=== PATIENT | female | born 1965 | race African-American/Black ===

== ENCOUNTER 2017-03-15 10:54 | Emergency (ER) | payer OTHER ==
[~2017-03-15] VITALS: Ht 154.9 cm; Wt 75.8 kg
--- NOTE | ~2017-03-15 | EKG ---
[address] [place] [address] ELECTROCARDIOGRAM REPORT Name: NASIMA ISRAELJEAN CARLOS Walters Room #: [facility] [id number] Admission: 03/15/17 Attend Phys: Discharge: 03/15/17 Date of : 65 Report #: [id number] THIS REPORT FOR: //name// [facility] ED Test Date: 2017-03-15 Test Time: 10:59:46 Pat Name: DANGELO ISRAEL Department: Room: Gender: F Physics Teacher: NICOLETTE : 1965 Requested By: Aby Smith Order Number: [id number] MD: Venkata Morin Measurements Intervals [place] Rate: 99 P: 42 HI: 160 QRS: 18 QRSD: 80 T: 99 QT: 343 QTc: 441 Interpretive Statements Sinus rhythm Left atrial enlargement Nonspecific T abnormalities, lateral leads Compared to ECG 08/22/2016 13:15:58 T-wave abnormality now present Electronically Signed On 03-16-2017 8:15:26 CDT by Venkata Morin [email or web address] <ELECTRONICALLY SIGNED> By: Venkata Morin MD, [facility] 03/16/17 0815 D: 04/9 105 Venkata Morin MD, FACC /EPI
[~2017-03-15 10:54] MED LIST: AMLODIPINE BESY10 MG PO; ASPIR 8181 MG PO; ATIVAN1 MG PO; CARVEDILOL12.5 MG PO; CATAPRES0.2 MG PO; CHLORDIAZEPOXID10 MG PO; CLONAZEPAM 1 MG1 M1 PO; CLONIDINE HCL0.3 M3 PO; CLONIDINE0.1 PO; CORTISONE57 GM TP; DIOVAN160 MG PO; HEARTBURN PREVE20 MG PO; IBUPROFEN 400400 M2 PO; KEFLEX500 MG PO; KEPPRA 500 MG500 M1 PO; LABETALOL 100100 MG PO; LISINOPRIL20 MG PO; LOPRESSOR25 PO; METOPROLOL SUCC25 M1 PO; NITROGLYCERIN0.4 MG SUBLING; NORVASC10 MG PO; OXYCODONE HCL 55 MG PO; PEPCID20 MG PO; PERCOCET 5-3251 EACH PO; PHENERGAN 25 MG25 M1 PO; PHENERGAN25 M1 RC; RESTORIL15 MG PO; RESTORIL30 MG PO; TOPROL XL25 MG PO; TOPROL XL50 MG PO; TRAMADOL 50 MG50 MG PO; VALSARTAN80 MG PO; VISTARIL 25 MG25 M1 PO; ZOFRAN ODT4 MG PO; ZOFRAN ODT4 MG SUBLING
[2017-03-15 12:06] LABS: BASOPHILS 0.4 % (0.0-2.0); EOSINOPHILS 1.1 % (0.0-3.0); HEMATOCRIT 45.2 % (37.0-47.0); HEMOGLOBIN 15.6 gm/dL (12.0-15.0); LYMPHOCYTES 14.4 % (24.0-44.0); MCH 30.8 pg (26.0-34.0); MCHC 34.5 g/dL (28.0-37.0); MCV 89.3 fL (80.0-100.0); MONOCYTES 11.2 % (1.0-8.0); PLATELET COUNT 150 thou/uL (150-400); POLYS 72.9 % (36.0-66.0); RBC 5.07 mil/uL (4.20-5.00)
[2017-03-15 12:08] LABS: MANUAL DIFF NO
[2017-03-15 12:16] LABS: ANION GAP 10 mmol/L (7-16); BUN 14 mg/dL (7-18); CALCIUM 9.3 mg/dL (8.5-10.1); CHLORIDE 104 mmol/L (98-107); CO2 26 mmol/L (21-32); CREATININE 0.9 mg/dL (0.6-1.0); GLUCOSE 83 mg/dL (74-106); POTASSIUM 3.7 mmol/L (3.5-5.1); SODIUM 140 mmol/L (136-145)
[2017-03-15 12:23] LABS: ALBUMIN 3.6 g/dL (3.4-5.0); ALKALINE PHOSPHATASE 107 U/L (46-116); SGOT 34 U/L (15-37); SGPT 46 U/L (30-65); TOTAL BILIRUBIN 0.5 mg/dL (<0.1-1.0); TOTAL PROTEIN 8.2 g/dL (6.4-8.2); TROPONIN-I < 0.04 ng/mL (<0.04-0.07)
[2017-03-15] MEDS ORDERED: PHENERGAN 25 MG25 M1 PO (14:10)
[2017-03-15] MEDS ORDERED: PROMS25 WY RECTAL (14:10)
== END 2017-03-15 15:30 | disposition home or self-care (01) ==
LOC: ER 10:54
PROVIDERS: Physician Assistant
DX: K31.84 Gastroparesis (principal); I10 Essential (primary) hypertension; Z90.49 Acquired absence of other specified parts of digestive tract; Z91.041 Radiographic dye allergy status; Z88.1 Allergy status to other antibiotic agents; Z88.2 Allergy status to sulfonamides; Z88.8 Allergy status to other drugs, medicaments and biological substances; F17.210 Nicotine dependence, cigarettes, uncomplicated; F15.90 Other stimulant use, unspecified, uncomplicated

== ENCOUNTER 2017-05-19 02:22 | Emergency (ER) | payer OTHER ==
[~2017-05-19] VITALS: Ht 152.4 cm; Wt 74.8 kg
[~2017-05-19 02:22] MED LIST changes: +PROMS25 WY RECTAL
[2017-05-19 03:29] LABS: HEMATOCRIT 42.9 % (37.0-47.0); HEMOGLOBIN 14.4 gm/dL (12.0-15.0); MCHC 33.5 g/dL (28.0-37.0); MCV 89.6 fL (80.0-100.0); PLATELET COUNT 166 thou/uL (150-400); RBC 4.79 mil/uL (4.20-5.00); RDW 13.8 % (10.5-14.5); WBC 6.3 thou/uL (4.0-11.0)
[2017-05-19 03:30] LABS: MANUAL DIFF YES
[2017-05-19 03:36] LABS: CALCIUM 8.5 mg/dL (8.5-10.1); CREATININE 1.4 mg/dL (0.6-1.0); POTASSIUM 3.6 mmol/L (3.5-5.1)
[2017-05-19 03:41] LABS: ALBUMIN 3.5 g/dL (3.4-5.0); TOTAL BILIRUBIN 0.5 mg/dL (<0.1-1.0); TOTAL PROTEIN 7.8 g/dL (6.4-8.2)
[2017-05-19] MEDS ORDERED: ULTRAM 50MG TAB50 MG PO (03:52)
[2017-05-19] MEDS ORDERED: DIPHENHIST50 MG PO (03:53)
[2017-05-19 04:29] LABS: ABSOLUTE NEUTROPHILS 2.5 thou/uL (1.4-8.2); ANISOCYTOSIS SLIGHT; TOTAL CELL COUNT 100
== END 2017-05-19 04:20 | disposition home or self-care (01) ==
LOC: ER 02:22
PROVIDERS: Emergency Medicine
DX: R11.2 Nausea with vomiting, unspecified (principal); M25.571 Pain in right ankle and joints of right foot; I10 Essential (primary) hypertension; I67.1 Cerebral aneurysm, nonruptured; F17.210 Nicotine dependence, cigarettes, uncomplicated; F12.10 Cannabis abuse, uncomplicated; Z90.49 Acquired absence of other specified parts of digestive tract; Z85.42 Personal history of malignant neoplasm of other parts of uterus; Z91.041 Radiographic dye allergy status; Z88.8 Allergy status to other drugs, medicaments and biological substances; Z88.0 Allergy status to penicillin; Z88.2 Allergy status to sulfonamides

== ENCOUNTER 2017-10-26 13:35 | Inpatient (IN) | payer OTHER ==
[~2017-10-26] VITALS: Ht 152.4 cm; Wt 78.0 kg
--- NOTE | ~2017-10-26 | EKG ---
[address] [address] ELECTROCARDIOGRAM REPORT Name: DANGELO STEVEN Room #: 439-P ADM IN M.R.#: [id number] Admission: 10/26/17 Attend Phys: Benjamín Cruz MD Discharge: Date of : 65 Report #: [id number] THIS REPORT FOR: //name// [facility] ED Test Date: 2017-10-26 Test Time: 13:42:21 Pat Name: DANGELO STEVEN Department: Room: 439 Gender: F Wool Sorter: CISCO : 1965 Requested By: Sue Eckert Order Number: [id number] MD: Jonathan Ibarra Measurements Intervals [place] Rate: 80 P: 30 CA: 165 QRS: 29 QRSD: 80 T: -6 QT: 397 QTc: 458 Interpretive Statements Sinus rhythm Probable left atrial enlargement Borderline T abnormalities, inferior leads Baseline wander in lead(s) II,III,aVF Compared to ECG 09/11/2017 14:29:00 T-wave abnormality now present Electronically Signed On 10-26-2017 22:28:14 FEEDER SWITCHBOARD OPERATOR by Jonathan Ibarra [email or web address] <ELECTRONICALLY SIGNED> By: Jonathan Ibarra MD 10/26/17 2228 1342 1342 Jonathan Ibarra MD /EPI
[~2017-10-26 13:35] MED LIST changes: +ASPIRIN81 M2 PO; +CATAPRES0.2 M1 PO; +COREG25 MG PO; +DIPHENHIST50 MG PO; +LIPITOR40 MG PO; +PROTONIX 20 MG20 M1 PO; +ULTRAM 50MG TAB50 MG PO
[2017-10-26 13:37] VITALS: BP 147/93
[2017-10-26 13:51] LABS: HEMOGLOBIN 14.7 gm/dL (12.0-15.0); MCH 30.3 pg (26.0-34.0); MCHC 33.4 g/dL (28.0-37.0); MCV 90.9 fL (80.0-100.0); RBC 4.84 mil/uL (4.20-5.00); RDW 13.9 % (10.5-14.5); WBC 5.9 thou/uL (4.0-11.0)
[2017-10-26 13:52] LABS: MANUAL DIFF YES
[2017-10-26 14:02] LABS: ANION GAP 6 mmol/L (7-16); BUN 26 mg/dL (7-18); CHLORIDE 109 mmol/L (98-107); CO2 25 mmol/L (21-32); CREATININE 1.6 mg/dL (0.6-1.0); GLUCOSE 105 mg/dL (74-106); POTASSIUM 4.2 mmol/L (3.5-5.1); SODIUM 140 mmol/L (136-145)
[2017-10-26 14:11] LABS: TROPONIN-I < 0.04 ng/mL (<0.06)
[2017-10-26 14:14] LABS: ABSOLUTE NEUTROPHILS 2.5 thou/uL (1.4-8.2); PLATELET COUNT 172 thou/uL (150-400); PLATELET ESTIMATE NORMAL; TOTAL CELL COUNT 100
[2017-10-26 16:17] VITALS: BP 145/102
[2017-10-26 17:18] VITALS: BP 159/102
[2017-10-26 19:57] VITALS: BP 146/113
[2017-10-27 04:34] VITALS: BP 144/89
[2017-10-27 07:35] VITALS: BP 173/104
[2017-10-27 11:03] VITALS: BP 173/104
== END 2017-10-27 12:03 | disposition home or self-care (01) | DRG 684 ==
LOC: ER 13:35 → EROBS 14:47 → 4S 16:17
PROVIDERS: Emergency Medicine
DX: N17.9 Acute kidney failure, unspecified (principal); E86.0 Dehydration; F41.9 Anxiety disorder, unspecified; I10 Essential (primary) hypertension; F12.90 Cannabis use, unspecified, uncomplicated; E78.5 Hyperlipidemia, unspecified; F17.210 Nicotine dependence, cigarettes, uncomplicated; Z88.0 Allergy status to penicillin; Z88.2 Allergy status to sulfonamides; Z82.49 Family history of ischemic heart disease and other diseases of the circulatory system; Z88.8 Allergy status to other drugs, medicaments and biological substances; Z91.041 Radiographic dye allergy status; Z79.82 Long term (current) use of aspirin; Z79.899 Other long term (current) drug therapy
CPT/HCPCS: 10100

== ENCOUNTER 2017-12-04 12:40 | Emergency (ER) | payer OTHER ==
[~2017-12-04] VITALS: Ht 157.5 cm; Wt 74.8 kg
--- NOTE | ~2017-12-04 | EKG ---
[address] [address] [address] [place] [address] ELECTROCARDIOGRAM REPORT Name: DANGELO STEVEN Room #: REG LUIS ALBERTO Mane#: [id number] Admission: 12/04/17 Attend Phys: Discharge: Date of : 65 Report #: [id number] THIS REPORT FOR: //name// [facility] ED Test Date: 2017-12-04 Test Time: 12:57:14 Pat Name: DANGELO STEVEN Department: Room: Gender: F Food Production Manager: [facility] : 1965 Requested By: Chema Castillo Order Number: [id number] MD: Jonathan Ibarra Measurements Intervals [place] Rate: 81 P: 26 NM: 147 QRS: 30 QRSD: 73 T: 103 QT: 383 QTc: 445 Interpretive Statements Sinus rhythm Left atrial enlargement Probable left ventricular hypertrophy Abnormal T, consider ischemia, lateral leads Compared to ECG 10/26/2017 13:42:21 Possible ischemia now present T-wave abnormality still present Electronically Signed On 12-04-2017 15:45:25 EXECUTIVE ASST by Jonathan Ibarra [email or web address] <ELECTRONICALLY SIGNED> By: Jonathan Ibarra MD 12/04/17 1545 1257 1257 Jonathan Ibarra MD /JERONIMO
[~2017-12-04 12:40] MED LIST changes: -PROTONIX 20 MG20 M1 PO; +PROTONIX40 M1 PO
[2017-12-04 13:26] LABS: HEMATOCRIT 42.3 % (37.0-47.0); HEMOGLOBIN 14.4 gm/dL (12.0-15.0); MCH 30.5 pg (26.0-34.0); MCHC 34.1 g/dL (28.0-37.0); MCV 89.5 fL (80.0-100.0); RBC 4.73 mil/uL (4.20-5.00); WBC 7.5 thou/uL (4.0-11.0)
[2017-12-04 13:41] LABS: ANION GAP 7 mmol/L (7-16); BUN 25 mg/dL (7-18); CHLORIDE 106 mmol/L (98-107); CO2 29 mmol/L (21-32); CREATININE 1.2 mg/dL (0.6-1.0); GLUCOSE 101 mg/dL (74-106); POTASSIUM 4.6 mmol/L (3.5-5.1); SODIUM 142 mmol/L (136-145)
[2017-12-04 13:49] LABS: TROPONIN-I < 0.04 ng/mL (<0.06)
[2017-12-04] MEDS ORDERED: PROAIR HFA8.5 GM INH (16:24)
[2017-12-04] MEDS ORDERED: TESSALON PERLE100 MG PO (16:24)
[2017-12-04 18:00] VITALS: BP 163/110
[2018-05-29] MEDS ORDERED: COREG6.25 MG PO (02:03)
[2018-05-29] MEDS ORDERED: HYDRALAZINE 2525 MG PO (02:04)
[2018-05-29] MEDS ORDERED: HYZAAR 100-251 EACH PO (02:04)
[2018-05-31] MEDS ORDERED: HYDRALAZINE 5050 MG PO (09:41)
[2018-05-31] MEDS ORDERED: NYAMYC15 GM TOP (09:48)
[2018-06-01] MEDS ORDERED: LOPRESSOR50 PO (08:41)
[2018-06-01] MEDS ORDERED: HYDROCODONE-AP1 EAC6 PO (08:42)
== END 2017-12-04 18:00 | disposition home or self-care (01) ==
LOC: ER 12:40
PROVIDERS: Emergency Medicine
DX: R07.9 Chest pain, unspecified (principal); F41.9 Anxiety disorder, unspecified; I10 Essential (primary) hypertension; I67.1 Cerebral aneurysm, nonruptured; F17.210 Nicotine dependence, cigarettes, uncomplicated; Z91.041 Radiographic dye allergy status; Z88.6 Allergy status to analgesic agent; Z88.0 Allergy status to penicillin; Z88.2 Allergy status to sulfonamides; Z88.8 Allergy status to other drugs, medicaments and biological substances

== ENCOUNTER 2018-10-17 11:02 | Inpatient (IN) | payer OTHER ==
[~2018-10-17] VITALS: Ht 152.4 cm; Wt 83.9 kg
--- NOTE | ~2018-10-17 | EKG ---
[place] [address] [address] [facility] [place] [address] ELECTROCARDIOGRAM REPORT Name: DANGELO STEVEN Room #: 170-5 ADM IN M.R.#: [id number] Admission: 10/17/18 Attend Phys: Emir Richter Discharge: Date of : 65 Report #: [id number] THIS REPORT FOR: //name// [facility] ED Test Date: 2018-10-17 Test Time: 11:26:10 Pat Name: DANGELO STEEVN Department: Room: 170 Gender: F Healthcare Associate: DAYNA : 1965 Requested By: Gabi Liu Order Number: [id number] MD: Jonathan Ibarra Measurements Intervals [place] Rate: 62 P: 22 MI: 162 QRS: 37 QRSD: 83 T: 130 QT: 435 QTc: 442 Interpretive Statements Sinus rhythm Probable left atrial enlargement Probable LVH with secondary repol abnrm Possible ischemia Compared to ECG 05/28/2018 23:25:13 Electronically Signed On 10-17-2018 16:22:39 PLASTIC CABLEMAKING MACHINE OPERATOR by Jonathan Ibarra [email or web address] <ELECTRONICALLY SIGNED> By: Jonathan Ibarra MD 10/17/181621 25 25 Jonathan Ibarra MD /JERONIMO
--- NOTE | ~2018-10-17 | HC ---
[facility] [place] [address] CONSULTATION Name: DANGELO STEVEN Room #: 358-P ADM IN M.R.#: [id number] Admission: 10/17/18 Attend Phys: Emir Richter Discharge: Date of : 65 Report #: [id number] THIS REPORT FOR: //name// CC: FAM unknown Emir Richter DATE OF SERVICE: 10/19/2018 HISTORY OF PRESENT ILLNESS: This is a 53-year-old female patient who is very difficult to evaluate. The patient indicates she is deaf. This happened after she had an aneurysm coiling, that was in early . She indicates she has weakness on the left side. Earlier she has complained of numbness. She had numbness on the left side of the face, left upper extremity, left lower extremity. From all indication, it looks like it started several days ago. When I asked her whether she had any deficit after the coiling, which was done on the right side. she indicated no, but again that history is not very clear. She indicated she is allergic to DYE. When I take the further history, she indicates she has a chest pain on the left side and that is her biggest complaint. Chest pain radiates down to the left upper extremity and the left side of the face. I reviewed records and it looks like she has provided multiple different histories. REVIEW OF SYSTEMS: Indicate that she is allergic to multiple medications, which include TRAMADOL, SULFA, PENICILLIN, ZOFRAN, METOCLOPRAMIDE, DYE FOR THE CONTRAST. She has a history of bronchitis. She is deaf and history taking is very difficult. She has a history of brain aneurysm clipping, from the CT report it looks like the clipping was on the left side. I carried out 14-point review of system and this was the relevant 14-point review of system. PAST MEDICAL HISTORY: Positive for aneurysm clipping. She said that made her deaf. FAMILY HISTORY: Negative for early age stroke. SOCIAL HISTORY: She smokes. PHYSICAL EXAMINATION: Examination is difficult because she is deaf, but she is alert. She is responsive, she can follow simple commands. Cranial nerve examination, if anything, there may be some weakness on the right side of the face. She complained of weakness in the left upper and left lower extremity. She said she can appreciate the pinprick on the face, upper extremities and the lower extremities, but it looks different than right side. I cannot tell much about the reflexes. I could not look at the patient's fundus. She is moderately built individual. She does not have any dysmorphic features of eyes, ears and face. Her blood pressure has been running high and the last one was [facility] [address] [place] [address] CONSULTATION Name: DANGELO STEVEN Room #: 358-P [facility] IN M.R.#: [id number] Admission: 10/17/18 Attend Phys: Emir Richter Discharge: Date of : 65 Report #: [id number] better at 141/100, respiration is 20, pulse is 70, temperature is 97.5. LABORATORY DATA: White count is 6.0. She was scheduled for an MRI today, but I do not know why it was not done. I cannot find out from MRI and the patient does not know if her clips are incompatible with magnet. We need to find that out. RECOMMENDATIONS: 1. It is not clear what the etiology of the patient's symptom is. She needs a workup of her brain as well as spine. That workup is difficult. Typically those workups are done by neurosurgeons and no neurosurgeon comes here. I do not know why MRI was not done, but I suspect that was because her clips may not be compatible with MRI or at least they could not confirm that. I will trying to find out. If MRI cannot be done, it is going to be very difficult. It will be difficult to evaluate the spine. Brain, we can still evaluate with the CT angiogram. The problem is that she has CONTRAST allergies and that can always cause problem even if we pretreat her. I am not sure how long the symptoms are going on. It is going on for several days and it does involve the face. She is hypertensive and that maybe contributing to her symptom also. Her BUN and creatinine is high and she needs some hydration before we can give her the contrast if the symptoms are chronic. 2. I had a long talk with the patient. I discussed with her our options. She does have a neurosurgeon, Dr. Veras, but I told her very clearly the limitation of our hospital, that no neurosurgeon comes here and these things are handled by neurosurgeon. I discussed with her the only thing I can do is try to find out why MRI was not done and she can have contrast CT angio of the head and neck to evaluate her further. That does carry some risk. Discussion was difficult because the patient is deaf and it is very difficult for her to comprehend things. More than 50 minutes of time was spent taking care of this patient today and majority of that time was spent counseling the patient and coordinating her care. By: 1804 2349 Maik Billingsley MD /nt
[~2018-10-17 11:02] MED LIST changes: +COREG6.25 MG PO; +HYDRALAZINE 2525 MG PO; +HYDRALAZINE 5050 MG PO; +HYDROCODONE-AP1 EAC6 PO; +HYZAAR 100-251 EACH PO; +LOPRESSOR50 PO; +NYAMYC15 GM TOP; +PROAIR HFA8.5 GM INH; +TESSALON PERLE100 MG PO
[2018-10-17 11:03] VITALS: BP 163/120
[2018-10-17 11:40] LABS: ABSOLUTE NEUTROPHILS 2.6 thou/uL (1.4-8.2); BASOPHILS 0.9 % (0.0-2.0); EOSINOPHILS 15.5 % (0.0-3.0); HEMATOCRIT 46.1 % (37.0-47.0); HEMOGLOBIN 15.8 gm/dL (12.0-15.0); MCH 30.2 pg (26.0-34.0); MCHC 34.3 g/dL (28.0-37.0); MONOCYTES 11.5 % (1.0-8.0); PLATELET COUNT 117 thou/uL (150-400); POLYS 44.1 % (36.0-66.0); RBC 5.24 mil/uL (4.20-5.00); RDW 14.2 % (10.5-14.5)
[2018-10-17 11:49] LABS: ANION GAP 9 mmol/L (7-16); BUN 25 mg/dL (7-18); CALCIUM 9.5 mg/dL (8.5-10.1); CHLORIDE 108 mmol/L (98-107); CO2 26 mmol/L (21-32); CREATININE 1.3 mg/dL (0.6-1.0); GLUCOSE 95 mg/dL (74-106); POTASSIUM 3.7 mmol/L (3.5-5.1); SODIUM 143 mmol/L (136-145)
[2018-10-17 11:53] LABS: APTT 28.4 Seconds (24.5-32.8); PROTIME 10.5 Seconds (9.3-11.4)
[2018-10-17] MEDS ORDERED: RESTORIL15 MG PO (11:55)
[2018-10-17] MEDS ORDERED: LASIX 40 MG TAB40 M2 PO (11:55)
[2018-10-17] MEDS ORDERED: POTASSIUM20 PO (11:56)
[2018-10-17] MEDS ORDERED: ATIVAN1 MG PO (11:56)
[2018-10-17] MEDS ORDERED: ATORVASTATIN CA40 MG PO (11:57)
[2018-10-17 11:59] LABS: TROPONIN-I <0.06 ng/mL (<0.06)
[2018-10-17 12:55] LABS: URINE BILIRUBIN NEGATIVE (Negative); URINE BLOOD NEGATIVE (Negative); URINE CLARITY CLEAR; URINE COLOR YELLOW; URINE GLUCOSE-RANDOM* NEGATIVE (Negative); URINE KETONES NEGATIVE (Negative); URINE LEUKOCYTES NEGATIVE (Negative); URINE NITRITE NEGATIVE (Negative); URINE PROTEIN (DIPSTICK) 1+ (Negative); URINE UROBILINOGEN 0.2 E.U./dl (0.2-1.0)
[2018-10-17 13:17] LABS: CASTS None Seen /LPF (None Seen); CRYSTALS None Seen /LPF (None Seen); SQUAMOUS 0-3 Few /LPF (0-3); URINE WBC 0-5 Rare /HPF (0-5)
[2018-10-17 13:18] LABS: BACTERIA 1-9 Few /HPF (None Seen); URINE RBC None Seen /HPF (0-2)
[2018-10-17 13:20] LABS: AMP/METHAMP Negative (Negative); BARBITURATES Negative (Negative); BENZODIAZEPINES POSITIVE (Negative); COCAINE POSITIVE (Negative); METHADONE Negative (Negative); OPIATES Negative (Negative); PCP Negative (Negative)
[2018-10-17 14:57] VITALS: BP 184/98
[2018-10-17 16:49] VITALS: BP 142/94
[2018-10-17 17:47] VITALS: BP 136/89
[2018-10-17 19:30] VITALS: BP 155/96
[2018-10-17 23:20] VITALS: BP 139/86
[2018-10-18 03:50] VITALS: BP 130/84
[2018-10-18 06:43] LABS: ALBUMIN 3.5 g/dL (3.4-5.0); ANION GAP 9 mmol/L (7-16); BUN 32 mg/dL (7-18); CALCIUM 9.1 mg/dL (8.5-10.1); CHLORIDE 104 mmol/L (98-107); CO2 26 mmol/L (21-32); CREATININE 1.7 mg/dL (0.6-1.0); GLUCOSE 87 mg/dL (74-106); PHOSPHORUS 5.1 mg/dL (2.5-4.9); POTASSIUM 4.1 mmol/L (3.5-5.1); SODIUM 139 mmol/L (136-145); TROPONIN-I <0.06 ng/mL (<0.06)
[2018-10-18 07:15] VITALS: BP 156/99
[2018-10-18 08:01] LABS: CHOLESTEROL 127 mg/dL (<200); HDL CHOLESTEROL 54 mg/dL (>40); LDL CHOLESTEROL 58 mg/dL (<100); TC:HDL 2.4 Ratio (Not establshd); TRIGLYCERIDE 75 mg/dL (<150); VLDL 15 mg/dL (<40)
[2018-10-18 11:25] VITALS: BP 149/97
[2018-10-18 16:06] VITALS: BP 132/81
[2018-10-18 19:33] VITALS: BP 149/96
[2018-10-19 04:35] VITALS: BP 192/110
[2018-10-19 06:06] VITALS: BP 149/92
[2018-10-19 06:36] LABS: ALBUMIN 3.2 g/dL (3.4-5.0); CALCIUM 9.2 mg/dL (8.5-10.1); CREATININE 1.3 mg/dL (0.6-1.0); PHOSPHORUS 3.8 mg/dL (2.5-4.9); POTASSIUM 3.7 mmol/L (3.5-5.1)
[2018-10-19 08:21] VITALS: BP 154/106
[2018-10-19 12:26] VITALS: BP 130/82
[2018-10-19 16:09] VITALS: BP 141/100
[2018-10-19 19:42] VITALS: BP 138/93
[2018-10-20] VITALS (7 sets, daily range): BP systolic 155–183; BP diastolic 101–130
[2018-10-20 05:30] LABS: HEMATOCRIT 43.9 % (37.0-47.0); HEMOGLOBIN 14.8 gm/dL (12.0-15.0); MCHC 33.7 g/dL (28.0-37.0); MCV 89.2 fL (80.0-100.0); RBC 4.92 mil/uL (4.20-5.00); RDW 13.9 % (10.5-14.5); WBC 4.6 thou/uL (4.0-11.0)
[2018-10-20] MEDS ORDERED: PROAIR HFA8.5 GM INH (09:29)
[2018-10-20] MEDS ORDERED: PROMS25 WY RECTAL (09:29)
[2018-10-20] MEDS ORDERED: ATORVASTATIN CA40 MG PO (09:30)
[2018-10-20] MEDS ORDERED: CLONIDINE HCL0.3 M3 PO (09:30)
[2018-10-20] MEDS ORDERED: COZAAR 50 MG TA50 M1 PO (09:30)
[2018-10-20] MEDS ORDERED: ASPIRIN81 M2 PO (09:30)
[2018-10-20] MEDS ORDERED: RESTORIL15 MG PO (09:31)
[2018-10-20] MEDS ORDERED: PROTONIX40 M1 PO (09:31)
[2018-10-20] MEDS ORDERED: ATIVAN1 MG PO (09:31)
[2018-10-20] MEDS ORDERED: POTASSIUM20 PO (09:31)
[2018-10-20] MEDS ORDERED: LASIX 40 MG TAB40 M2 PO (09:31)
[2018-10-20] MEDS ORDERED: AZITHROMYCIN 2250 MG PO (09:46)
[2018-10-20] MEDS ORDERED: HYDROCODONE-AP1 EAC6 PO (09:46)
== END 2018-10-20 13:24 | disposition home or self-care (01) | DRG 69 ==
LOC: ER 11:02 → EROBS 13:53 → 3W 17:31
PROVIDERS: Emergency Medicine; Hospitalist; Internal Medicine
DX: G45.9 Transient cerebral ischemic attack, unspecified (principal); I16.0 Hypertensive urgency; F41.9 Anxiety disorder, unspecified; I10 Essential (primary) hypertension; J06.9 Acute upper respiratory infection, unspecified; F19.10 Other psychoactive substance abuse, uncomplicated; J40 Bronchitis, not specified as acute or chronic; E78.5 Hyperlipidemia, unspecified; G89.29 Other chronic pain; F14.90 Cocaine use, unspecified, uncomplicated; M54.9 Dorsalgia, unspecified; F12.90 Cannabis use, unspecified, uncomplicated; Z71.6 Tobacco abuse counseling; Z88.0 Allergy status to penicillin; Z88.2 Allergy status to sulfonamides; Z88.8 Allergy status to other drugs, medicaments and biological substances; Z79.82 Long term (current) use of aspirin; Z79.899 Other long term (current) drug therapy; Z82.49 Family history of ischemic heart disease and other diseases of the circulatory system; Z91.041 Radiographic dye allergy status; Z23 Encounter for immunization
CPT/HCPCS: 10879

== ENCOUNTER 2019-01-25 08:12 | Inpatient (IN) | payer OTHER ==
[~2019-01-25] VITALS: Ht 152.4 cm; Wt 83.9 kg
[~2019-01-25 08:12] MED LIST changes: +ATORVASTATIN CA40 MG PO; +AZITHROMYCIN 2250 MG PO; +COZAAR 50 MG TA50 M1 PO; +LASIX 40 MG TAB40 M2 PO; +POTASSIUM20 PO
[2019-01-25 08:17] VITALS: BP 144/103
[2019-01-25] MEDS ORDERED: PERCOCET PO (09:14)
[2019-01-25] MEDS ORDERED: CARVEDILOL12.5 MG PO (09:14)
--- NOTE | 2019-01-25 09:14 | EKG ---
[facility] [address] ELECTROCARDIOGRAM REPORT Name: DANGELO STEVEN Room #: REG LUIS ALBERTO Mane#: [id number] ������������������ Admission: 01/25/19 ������������������ Attend Phys: Discharge: ������������������ Date of : 65 Report #: [id number] ����������������������������������������������������������������� [id number] THIS REPORT FOR: //name// [facility] ED Test Date: 2019-01-25 Test Time: 08:28:38 Pat Name: DANGELO STEVEN Department: Room: Gender: F Launch Leader: Joey MOCTEZUMA RN : 1965 Requested By: Vickey Stockton Order Number: [id number] MD: Venkata Morin Measurements Intervals [place] Rate: 88 P: 49 ID: 158 QRS: 14 QRSD: 76 T: 130 QT: 387 QTc: 469 Interpretive Statements Sinus rhythm Probable left atrial enlargement LVH with secondary repolarization abnormality Minimal ST elevation, inferior leads Compared to ECG 10/17/2018 11:26:10 No significant change was found Electronically Signed On 01-25-2019 9:14:12 COMPENSATION SUPERVISOR by Venkata Morin [email or web address] ��������������������������������������������� <ELECTRONICALLY SIGNED> ���������������������������������������� By: Venkata Morin MD, [facility] ��������������������������������������������� 01/25/19913 7 7 Venkata Morin MD, [facility] /EPI
[2019-01-25 10:02] LABS: HEMATOCRIT 43.7 % (37.0-47.0); HEMOGLOBIN 14.8 gm/dL (12.0-15.0); MCH 30.3 pg (26.0-34.0); MCV 89.3 fL (80.0-100.0); RBC 4.89 mil/uL (4.20-5.00); RDW 14.9 % (10.5-14.5); WBC 5.9 thou/uL (4.0-11.0)
[2019-01-25 10:10] LABS: ANION GAP 11 mmol/L (7-16); BUN 33 mg/dL (7-18); CHLORIDE 105 mmol/L (98-107); CO2 25 mmol/L (21-32); CREATININE 1.9 mg/dL (0.6-1.0); GLUCOSE 100 mg/dL (74-106); POTASSIUM 3.5 mmol/L (3.5-5.1); SODIUM 141 mmol/L (136-145)
[2019-01-25 10:19] LABS: TROPONIN-I <0.06 ng/mL (<0.06)
[2019-01-25 10:43] LABS: ABSOLUTE NEUTROPHILS 3.8 thou/uL (1.4-8.2)
[2019-01-25 10:45] LABS: PLATELET COUNT 143 thou/uL (150-400)
[2019-01-25 14:58] VITALS: BP 167/111
[2019-01-25 15:50] VITALS: BP 156/110
[2019-01-25 16:34] VITALS: BP 172/102
[2019-01-25 17:22] VITALS: BP 172/102
[2019-01-25 19:28] LABS: AMP/METHAMP Negative (Negative); BARBITURATES Negative (Negative); BENZODIAZEPINES Negative (Negative); COCAINE POSITIVE (Negative); METHADONE Negative (Negative); OPIATES Negative (Negative); PCP Negative (Negative)
--- NOTE | 2019-01-25 19:36 | NUR ---
PATIENT ADMITTED TO ROOM ORIENTED TO CALL LIGHT, BED ALARMS, BATHROOM AND UNIT ROUTINE. SHE STATES TO NURSE SHE NEEDS A NARCOTIC TO CONTROL HER PAIN SHE HAS BEEN HAVING PAIN ALL DAY. STATES SHE IS HAVING LEFT CHEST PAIN. NOTIFIED AND ORDER FOR LIDOCAIN NOTED. PATIENT REFUSED LIDOCAIN STATING IT DOES NOT HELP HER IN ANY WAY. STATES SHE WANTS TORDOL AND FLEXERIL. NOTIFIED BUT SHE COULD NOT HAVE TORDOL BECAUSE HER CREATININE WAS HIGH. EXPLAINED THIS PATIENT AND STATED SHE IS GOING TO GO AHEAD AND LEAVE IF SHE WILL NOT BE GIVEN THE MEDICATOINS THAT SHE WANTS. SHE THEN DRESSED HERSELF AND SIGNED THE AMA FORM. SHE WAS OFFERED A W/C TO TAKE HER TO LOBBY BUT SHE REFUSED. AND WALKED TO ELEVATOR HERSELF. NOTIFIED.
== END 2019-01-25 19:49 | disposition home or self-care (01) | DRG 305 ==
LOC: ER 08:12 → EROBS 10:31 → 3W 15:47
PROVIDERS: Emergency Medicine; ADMIT Internal Medicine
DX: I16.0 Hypertensive urgency (principal); I24.9 Acute ischemic heart disease, unspecified; I10 Essential (primary) hypertension; F17.210 Nicotine dependence, cigarettes, uncomplicated; H91.90 Unspecified hearing loss, unspecified ear; F41.1 Generalized anxiety disorder; Z90.49 Acquired absence of other specified parts of digestive tract; Z88.0 Allergy status to penicillin; Z88.2 Allergy status to sulfonamides; Z88.8 Allergy status to other drugs, medicaments and biological substances; Z91.041 Radiographic dye allergy status; Z82.49 Family history of ischemic heart disease and other diseases of the circulatory system; Z91.19 Patient's noncompliance with other medical treatment and regimen; Z79.899 Other long term (current) drug therapy
CPT/HCPCS: 10879

== ENCOUNTER 2019-07-11 06:13 | Emergency (ER) | payer OTHER ==
[~2019-07-11] VITALS: Ht 165.1 cm; Wt 79.4 kg
[~2019-07-11 06:13] MED LIST changes: +PERCOCET PO
[2019-07-11 07:30] LABS: HEMATOCRIT 45.5 % (37.0-47.0); HEMOGLOBIN 15.5 gm/dL (12.0-15.0); MCH 30.2 pg (26.0-34.0); MCHC 34.2 g/dL (28.0-37.0); MCV 88.3 fL (80.0-100.0); RBC 5.16 mil/uL (4.20-5.00); RDW 14.5 % (10.5-14.5); WBC 6.1 thou/uL (4.0-11.0)
[2019-07-11 07:45] LABS: ANION GAP 14 mmol/L (7-16); BUN 29 mg/dL (7-18); CALCIUM 9.2 mg/dL (8.5-10.1); CHLORIDE 102 mmol/L (98-107); CO2 22 mmol/L (21-32); CREATININE 1.6 mg/dL (0.6-1.0); GLUCOSE 96 mg/dL (74-106); POTASSIUM 3.4 mmol/L (3.5-5.1); SODIUM 138 mmol/L (136-145)
[2019-07-11 07:51] LABS: ALBUMIN 3.6 g/dL (3.4-5.0); SALICYLATE < 2.8 mg/dL (2.8-20.0); SGOT 58 U/L (15-37); SGPT 63 U/L (30-65); TOTAL BILIRUBIN 0.8 mg/dL (<0.1-1.0); TOTAL PROTEIN 8.4 g/dL (6.4-8.2); TROPONIN-I <0.06 ng/mL (<0.06)
[2019-07-11] MEDS ORDERED: CLONIDINE HCL0.3 M3 PO (07:58)
[2019-07-11] MEDS ORDERED: COZAAR 25 MG TA25 M1 PO (07:58)
[2019-07-11] MEDS ORDERED: ATIVAN2 MG PO (07:59)
[2019-07-11 08:10] LABS: URINE BLOOD NEGATIVE (Negative); URINE CLARITY CLEAR; URINE COLOR YELLOW; URINE GLUCOSE-RANDOM* NEGATIVE (Negative); URINE KETONES NEGATIVE (Negative); URINE NITRITE-REFLEX NEGATIVE (Negative); URINE PROTEIN (DIPSTICK) 1+ (Negative); URINE SPECIFIC GRAVITY >= 1.030 (1.005-1.035); URINE UROBILINOGEN 0.2 E.U./dl (0.2-1.0)
[2019-07-11 08:18] LABS: AMP/METHAMP Negative (Negative); BARBITURATES Negative (Negative); BENZODIAZEPINES POSITIVE (Negative); COCAINE POSITIVE (Negative); METHADONE Negative (Negative); OPIATES Negative (Negative); PCP POSITIVE (Negative)
[2019-07-11 08:20] LABS: URINE LEUKOCYTES-REFLEX 1+ (Negative)
[2019-07-11 08:39] LABS: SQUAMOUS 4-10 Moderate /LPF (0-3)
[2019-07-11 08:40] LABS: BACTERIA-REFLEX 1-9 Few /HPF (None Seen); CASTS None Seen /LPF (None Seen); CRYSTALS None Seen /LPF (None Seen); URINE RBC 0-2 Rare /HPF (0-2); URINE WBC-REFLEX 6-15 Few /HPF (0-5)
[2019-07-11 08:47] LABS: URINE BILIRUBIN NEGATIVE (Negative)
[2019-07-11 08:50] LABS: ABSOLUTE NEUTROPHILS 2.7 thou/uL (1.4-8.2); PLATELET COUNT 137 thou/uL (150-400)
[2019-07-11 08:51] LABS: PLATELET ESTIMATE NORMAL
[2019-07-12 00:46] VITALS: BP 104/73
--- NOTE | 2019-07-12 13:58 | EKG ---
[facility] [place] [address] ELECTROCARDIOGRAM REPORT Name: DANGELO STEVEN Room #: DEP LUIS ALBERTO Mane#: [id number] Admission: 07/11/19 Attend Phys: Discharge: 07/12/19 Date of : 65 Report #: [id number] THIS REPORT FOR: //name// [facility] ED Test Date: 2019-07-11 Test Time: 07:27:07 Pat Name: DANGELO STEVEN Department: Room: Gender: F Optics Test Technician: [facility] : 1965 Requested By: Lincoln Interiano Order Number: [id number] MD: Venkata Morin Measurements Intervals [place] Rate: 89 P: 47 OR: 156 QRS: 12 QRSD: 79 T: 3 QT: 400 QTc: 487 Interpretive Statements Sinus rhythm Nonspecific ST and T wave abnormality Borderline prolonged QT interval Compared to ECG 01/25/2019 08:28:38 Nonspecific change in the ST and T-wave segments Electronically Signed On 07-12-2019 13:58:03 CDT by Venkata Morin [email or web address] <ELECTRONICALLY SIGNED> By: Venkata Morin MD, [facility] 07/12/19 1358 6 6 Venkata Morin MD, [facility] /EPI
== END 2019-07-12 04:19 ==
LOC: ER 06:13
PROVIDERS: Emergency Medicine
DX: F32.9 Major depressive disorder, single episode, unspecified (principal); R45.851 Suicidal ideations; A59.9 Trichomoniasis, unspecified; F14.10 Cocaine abuse, uncomplicated; F15.10 Other stimulant abuse, uncomplicated; F16.90 Hallucinogen use, unspecified, uncomplicated; M54.5 Low back pain; F17.210 Nicotine dependence, cigarettes, uncomplicated; Z91.041 Radiographic dye allergy status; Z88.8 Allergy status to other drugs, medicaments and biological substances; Z88.0 Allergy status to penicillin; Z88.2 Allergy status to sulfonamides; Z88.6 Allergy status to analgesic agent; Z90.49 Acquired absence of other specified parts of digestive tract

== ENCOUNTER 2019-11-24 14:36 | Inpatient (IN) | payer OTHER ==
[2019-11-24] VITALS (8 sets, daily range): BP systolic 148–165; BP diastolic 90–120
[~2019-11-24] VITALS: Ht 152.4 cm; Wt 88.0 kg
--- NOTE | ~2019-11-24 | HC ---
[facility] [place] [address] CONSULTATION Name: DANGELO STEVEN Room #: 244-P [facility] IN M.R.#: [id number] Admission: 11/24/19 Attend Phys: Kalani Mallory MD Discharge: Date of : 65 Report #: [id number] THIS REPORT FOR: //name// CC: Kalani Mallory [facility] physician/PCP DATE OF SERVICE: 11/25/2019 HISTORY OF PRESENT ILLNESS: The patient is a 54-year-old -Chilean female with a prior history of hypertension, brain aneurysm, coiling, hyperlipidemia, admitted with right-sided numbness. She is vague, but appears to have some complaints of right-sided weakness as well. CT of the head was negative. MRI is unable to be done with the prior brain aneurysm. Neurology is involved. We are seeing her in rehabilitation medicine consultation. PAST MEDICAL HISTORY: Includes chronic low back pain, herniated disk, for which she has been on narcotic medication. She does have history of substance abuse. Prior history also includes hyperlipidemia, cholecystectomy, and heart disease. HABITS: Noted to be a current every day smoker, cigarette, half pack per day. No history of alcohol abuse. ALLERGIES: Multiple allergies are as noted. SOCIAL HISTORY: Noted to be legally deaf. She indicates that she is living in an apartment by herself, did not utilize gait aids. History was somewhat difficult with her hearing deficits. Per the computer she has been at a homeless halfway in the past. REVIEW OF SYSTEMS: Complains of the numbness of her right side. PHYSICAL EXAMINATION: GENERAL: A 54-year-old -[place]an female, somewhat overweight, no obvious distress. VITAL SIGNS: Last recorded temperature 97.3, pulse 63, respirations 13, blood pressure 176/103. NEUROLOGIC: She is alert, hard of hearing, but can converse reasonably well. I think she does some reading of lips. Facies appeared symmetric. She may have a mild depressed right nasolabial fold. Appeared to move both upper and lower extremities. I could not detect any obvious focal weakness. She indicates some decreased sensation in right upper and right lower extremity with testing. DTRs were trace to 1. No clonus. ASSESSMENT: A 54-year-old female with the following problem list: 1. Apparent transient ischemic attack. Noted to have right-sided numbness. No gross weakness on exam. [address] [address] CONSULTATION Name: DANGELO STEVEN Room #: 244-P [facility] IN M.R.#: [id number] Admission: 11/24/19 Attend Phys: Kalani Mallory MD Discharge: Date of : 65 Report #: [id number] 2. History of hypertension. 3. Past history of brain aneurysm with coiling. 4. Prior medical history is as noted above. PLAN: Therapy evaluations are underway. She is currently in the intensive care unit being monitored regarding her neuro status and monitoring blood pressure. At this point, we will be glad to follow along with you regarding her rehab therapy needs. By: 1137 1235 Jarod Gomes MD /[facility]
[~2019-11-24 14:36] MED LIST changes: +ATIVAN2 MG PO; +COZAAR 25 MG TA25 M1 PO
[2019-11-24 15:59] LABS: HEMATOCRIT 48.5 % (37.0-47.0); MCH 28.8 pg (26.0-34.0); MCHC 32.9 g/dL (28.0-37.0); MCV 87.5 fL (80.0-100.0); RBC 5.53 mil/uL (4.20-5.00); RDW 15.3 % (10.5-14.5); WBC 9.1 thou/uL (4.0-11.0)
[2019-11-24 16:12] LABS: APTT 22.2 Seconds (24.5-32.8); PROTIME 10.3 Seconds (9.3-11.4)
[2019-11-24 16:24] LABS: ANION GAP 8 mmol/L (7-16); BUN 26 mg/dL (7-18); CALCIUM 9.7 mg/dL (8.5-10.1); CHLORIDE 107 mmol/L (98-107); CO2 29 mmol/L (21-32); CREATININE 1.4 mg/dL (0.6-1.0); GLUCOSE 84 mg/dL (74-106); POTASSIUM 4.3 mmol/L (3.5-5.1); SODIUM 144 mmol/L (136-145)
[2019-11-24 16:28] LABS: ABSOLUTE NEUTROPHILS 4.2 thou/uL (1.4-8.2)
[2019-11-24 16:31] LABS: LARGE PLATELETS OCCASIONAL
[2019-11-24 16:34] LABS: ALBUMIN 3.4 g/dL (3.4-5.0); SGOT 45 U/L (15-37); SGPT 51 U/L (30-65); TOTAL BILIRUBIN 0.3 mg/dL (<0.1-1.0); TOTAL PROTEIN 8.7 g/dL (6.4-8.2); TROPONIN-I <0.06 ng/mL (<0.06)
[2019-11-24 16:51] LABS: URINE BILIRUBIN NEGATIVE (Negative); URINE BLOOD NEGATIVE (Negative); URINE CLARITY CLEAR; URINE COLOR YELLOW; URINE GLUCOSE-RANDOM* NEGATIVE (Negative); URINE KETONES NEGATIVE (Negative); URINE LEUKOCYTES-REFLEX NEGATIVE (Negative); URINE NITRITE-REFLEX NEGATIVE (Negative); URINE PROTEIN (DIPSTICK) 2+ (Negative); URINE SPECIFIC GRAVITY >= 1.030 (1.005-1.035); URINE UROBILINOGEN 0.2 E.U./dl (0.2-1.0)
[2019-11-24 16:58] LABS: SQUAMOUS >10 Many /LPF (0-3)
[2019-11-24 16:59] LABS: BACTERIA-REFLEX None Seen /HPF (None Seen); CASTS None Seen /LPF (None Seen); CRYSTALS None Seen /LPF (None Seen); URINE RBC None Seen /HPF (0-2); URINE WBC-REFLEX 0-5 Rare /HPF (0-5)
[2019-11-24 18:28] LABS: AMP/METHAMP Negative (Negative); BARBITURATES Negative (Negative); BENZODIAZEPINES Negative (Negative); COCAINE Negative (Negative); METHADONE Negative (Negative); OPIATES Negative (Negative); PCP Negative (Negative)
[2019-11-24] MEDS ORDERED: TIZANIDINE4 MG/1 TA1 PO (21:37)
[2019-11-24] MEDS ORDERED: MICARDIS 20MG T20 M1 PO (21:38)
[2019-11-24] MEDS ORDERED: PROMETHAZINE12.5 M1 PO (21:39)
[2019-11-24] MEDS ORDERED: LASIX 40 MG TAB40 MG PO (21:40)
[2019-11-24] MEDS ORDERED: ATORVASTATIN CA80 MG PO (21:40)
--- NOTE | 2019-11-24 22:05 | NUR ---
pt transported from ED on [facility] with cardene gtts infusion @ 1.25mg./hr by Duncan HAAS RN. pt had possessions with her including clothing,jacket, phone, and marketing communications coordinator. pt hard of hearing (legally deaf). Rosibel john MANAGER MATERIAL at bedside @ 2129 to assess pt for HIMS group
[2019-11-25] VITALS (37 sets, daily range): BP systolic 98–223; BP diastolic 56–118
[2019-11-25 02:05] LABS: GLYCOHEMOGLOBIN (HGB A1C) 5.9 % (4.8-5.6)
[2019-11-25 06:41] LABS: CHOLESTEROL 179 mg/dL (<200); HDL CHOLESTEROL 60 mg/dL (>40); LDL CHOLESTEROL 84 mg/dL (<100); TRIGLYCERIDE 176 mg/dL (<150); VLDL 35 mg/dL (<40)
[2019-11-25 06:42] LABS: SERUM ASSESSMENT Clear
--- NOTE | 2019-11-25 09:11 | NUR ---
MRI REPORTS THAT PT CAN NOT HAVE MRI R/T BRAIN ANEURYSM CLIPS
--- NOTE | 2019-11-25 10:13 | NUR ---
WAS ABLE TO CAONTACT DR. SANCHEZ AND OBTAIN ORDER FOR MEDICATION TO CONTROL PT'S NAUSEA. PT NAUSEA CONTROLLED OF NOW AND SBP IS STARTING TO COME DOWN. DR. SANCHEZ TO RENEW GABO MARAVILLA.
--- NOTE | 2019-11-25 10:16 | EKG ---
[place] [address] [facility] [place] [address] ELECTROCARDIOGRAM REPORT Name: DANGELO STEVEN Room #: 244-P ADM IN M.R.#: [id number] Admission: 11/24/19 Attend Phys: Kalani Mallory MD Discharge: Date of : 65 Report #: [id number] THIS REPORT FOR: //name// [facility] ED Test Date: 2019-11-24 Test Time: 15:41:57 Pat Name: DANGELO STEVEN Department: Room: 244 Gender: F Tubing Machine Operator: LINDEN : 1965 Requested By: Gabi Liu Order Number: [id number] MD: Venkata Morin Measurements Intervals [place] Rate: 61 P: 51 VT: 164 QRS: 27 QRSD: 75 T: 102 QT: 431 QTc: 434 Interpretive Statements Sinus rhythm Left atrial enlargement LVH with secondary repolarization abnormality Compared to ECG 07/11/2019 07:27:07 Lateral T wave abnormality is more pronounced Electronically Signed On 11-25-2019 10:15:38 ADVANCED MANAGER by Venkata Morin [email or web address] <ELECTRONICALLY SIGNED> By: Venkata Morin MD, [facility] 11/25/19 1015 1541 1541 Venkata Morin MD, FAC /EPI
--- NOTE | 2019-11-25 12:48 | 2DMMODE ---
[facility] [place] [address] 2 D/M-MODE ECHOCARDIOGRAM Name: DANGELO STEVEN Room #: 244-P ADM IN M.R.#: [id number] Admission: 11/24/19 Attend Phys: Louie Cui Discharge: Date of : 65 Report #: [id number] THIS REPORT FOR: //name// APPROVED REPORT Study performed: 11/25/2019 11:21:38 EXAM: Comprehensive 2D, Doppler, and color-flow Echocardiogram Patient Location: ICU Room #: 244 Status: routine BSA: 1.89 HR: 62 bpm BP: 160/67 mmHg Rhythm: NSR Indications HTN urgency, rule out stroke. Hx: ND, CHF, HLD, tobacco. Echo Enhancing Agent Indication: Rule out Shunt Agent(s) / Amount(s) Used: Agitated Saline 6 cc 2D Dimensions RVDd: 37.06 mm IVSd: 15.00 (7-11mm) LVOT Diam: 20.00 (18-24mm) LVDd: 39.24 mm PWd: 13.19 (7-11mm) Ascending Ao: 37.80 (22-36mm) LVDs: 24.18 (25-40mm) Aortic Root: 31.55 mm Volumes Left Atrial Volume (Systole) Single Plane 4CH: 53.81 mL Single Plane 2CH: 55.47 mL LA ESV Index: 33.00 mL/m2 Aortic Valve AoV Peak Dante.: 1.76 m/s AO Peak Gr.: 12.42 mmHg LVOT Max P.30 mmHg LVOT Max V: 1.60 m/s TR Vmax: 2.82 cm2 AI Vmax: 5.11 m/s AI Ashe: 2.81 m/s2 AI PHT: 527.[address] [facility] [place] [place] [address] 2 D/M-MODE ECHOCARDIOGRAM Name: DANGELO STEVEN Room #: [facility] IN M.R.#: [id number] Admission: 11/24/19 Attend Phys: Louie Cui Discharge: Date of : 65 Report #: [id number] Mitral Valve E/A Ratio: 0.6 MV Decel. Time: 352.98 ms MV E Max Dante.: 0.56 m/s MV A Dante.: 1.01 m/s MV PHT: 102.37 ms IVRT: 166.09 ms Pulmonary Valve PV Peak Dante.: 0.81 m/s PV Peak Gr.: 2.65 mmHg Pulmonary Vein P Vein S: 0.60 m/s P Vein A: 0.24 m/s P Vein D: 0.38 m/s P Vein A Dur.: 129.2 msec P Vein S/D Ratio: 1.58 Left Ventricle The left ventricle is normal size. There is normal LV segmental wall motion. Moderate concentric left ventricular hypertrophy. Left ventricular systolic function is hyperdynamic. LVEF is 65-70%. Mild diastolic dysfunction is present (impaired relaxation pattern). Right Ventricle The right ventricle is normal size. The right ventricular systolic function is normal. Atria The left atrium size is normal. No shunting noted by contrast bubble injection. The right atrium size is normal. Aortic Valve The aortic valve is normal in structure. Mild to moderate aortic regurgitation. There is no aortic valvular stenosis. Mitral Valve The mitral valve is normal in structure. Trace to mild mitral regurgitation. Tricuspid Valve The tricuspid valve is normal in structure. There is no tricuspid valve regurgitation noted. Unable to assess PA pressure. Pulmonic Valve The pulmonary valve is normal in structure. Trace pulmonic [facility] [address] [place] [address] 2 D/M-MODE ECHOCARDIOGRAM Name: DANGELO STEVEN Room #: 244-P [facility] IN .R.#: [id number] Admission: 11/24/19 Attend Phys: Louie Cui Discharge: Date of : 65 Report #: [id number] regurgitation. Great Vessels The aortic root is normal in size. The ascending aorta is mildly dilated at 3.8cm. The inferior vena cava is not well visualized. Pericardium Small pericardial effusion. <Conclusion> The left ventricle is normal size. LVEF is 65-70%. The aortic valve is normal in structure. Mild to moderate aortic regurgitation. The mitral valve is normal in structure. Trace to mild mitral regurgitation. The tricuspid valve is normal in structure. There is no tricuspid valve regurgitation noted. The pulmonary valve is normal in structure. Trace pulmonic regurgitation. The ascending aorta is mildly dilated at 3.8cm. Small pericardial effusion. No shunting noted by contrast bubble injection. <ELECTRONICALLY SIGNED> By: Malick Hernandez MD 11/25/19 1247 1247 1247 Malick Hernandez MD /INF
--- NOTE | 2019-11-25 17:10 | NUR ---
PT WAS ABLE TO GET TO SINK AND COMPPLETE GIVE SELF A WASH CLOTH BATH AD COMPLETE ORAL CARE [facility] [employer].
--- NOTE | 2019-11-26 04:30 | NUR ---
Pt was admitted from ED at the start of this shift, she has been nonresponsive, no corneal reflexes noted. She did open her eyes this morning, but does not track, her left pupil is cloudy, from a cataract. She is unrestrained, and has made no movement with any extremity. Pt is V-paced, 40's to 60's, has been hypertensive with SBP from 160's to 170's (and higher), DBP from 80's to 90's or more, +pulses, although her nailbeds are all dusky, and there is trace edema to LLE. She remains intubated, lungs are coarse, and diminished, especially to the CHRIS, sats are 96% and above, with minimal oral/ETT secretions. Pt receives dialysis on // and had been having falls at home, which is why she was placed in a mcc, and when found pulseless in her W/C, it may have been for an extended period of time, (up to 45 minutes). Case Mgmt may need to be called in, there is an issue with who has medical POA, there are copies of two documents on her chart, but each family member knew that she would not choose to be on machines to live, her son Jarod was in to visit and voiced this. It was agreed by family and this caption writer that her wishes and dignity are of more concern than who has the "right" paperwork, and that the patient will be monitored at least 48 hours before a decision is made. JOHN Goldman was notified of this change in code status.
--- NOTE | 2019-11-26 04:59 | NUR ---
Pt reports not resting well since her admit. she has been treated with the PRN meds that are available to her, and she HAS been sleeping. She has requested her melatonin 10 mg, that her percocet should be two 5/325 tabs and that the PO ativan has not been very effective. Her assessment is benign, VSS, she has removed her BP cuff through the night, this has not been replaced EVERY time, because she is stable. She also was able to eat last night w/o any nausea or vomiting. Her slurred speech is likely due to her hearing loss, her slight facial droop has been from a previous event. She transfers easily from the bed to the recliner/commode but is still monitored for her safety.
[2019-11-26 05:26] LABS: CALCIUM 9.2 mg/dL (8.5-10.1)
[2019-11-26 05:46] LABS: CREATININE 2.4 mg/dL (0.6-1.0)
[2019-11-26] MEDS ORDERED: PERCOCET PO (13:07)
[2019-11-26 13:31] VITALS: BP 111/72
--- NOTE | 2019-11-26 15:57 | NUR ---
INITIAL ASSESSMENT: Pt evaluated for d/c planning needs. Reviewed chart and spoke with nurse and pt. Pt is deaf, but is able to read lips. Pt said she lives in apartment. Plan is for pt to go to [facility] and [facility] handlers her prescriptions. Dr Diaz said he electronically refilled pt's prescriptions at pharmacy on record. Completed cab voucher with security. RN will need to call security when pt is dressed and ready to leave, and they will arrange cab. No other needs identified.
[2019-11-26 16:11] VITALS: BP 111/72
== END 2019-11-26 17:51 | disposition home or self-care (01) | DRG 305 ==
LOC: ER 14:36 → ICU 18:59 → EROBS 18:59 → ICU 22:16
PROVIDERS: Emergency Medicine; Hospitalist; ADMIT Hospitalist
DX: I16.1 Hypertensive emergency (principal); R20.2 Paresthesia of skin; E78.5 Hyperlipidemia, unspecified; I50.9 Heart failure, unspecified; G89.29 Other chronic pain; I11.0 Hypertensive heart disease with heart failure; M54.5 Low back pain; F41.9 Anxiety disorder, unspecified; F12.188 Cannabis abuse with other cannabis-induced disorder; Z79.82 Long term (current) use of aspirin; Z79.899 Other long term (current) drug therapy; Z90.49 Acquired absence of other specified parts of digestive tract; Z88.0 Allergy status to penicillin; Z88.2 Allergy status to sulfonamides; Z88.8 Allergy status to other drugs, medicaments and biological substances; Z88.6 Allergy status to analgesic agent; I25.2 Old myocardial infarction; Z71.6 Tobacco abuse counseling; Z91.041 Radiographic dye allergy status
CPT/HCPCS: 10078

== ENCOUNTER 2020-11-07 17:10 | Emergency (ER) | payer OTHER ==
[~2020-11-07] VITALS: Ht 160 cm; Wt 79.4 kg
[~2020-11-07 17:10] MED LIST changes: +ATORVASTATIN CA80 MG PO; +LASIX 40 MG TAB40 MG PO; +MICARDIS 20MG T20 M1 PO; +PROMETHAZINE12.5 M1 PO; +TIZANIDINE4 MG/1 TA1 PO
[2020-11-07 18:23] LABS: URINE BILIRUBIN NEGATIVE (Negative); URINE BLOOD NEGATIVE (Negative); URINE CLARITY CLEAR; URINE COLOR YELLOW; URINE GLUCOSE-RANDOM* NEGATIVE (Negative); URINE KETONES NEGATIVE (Negative); URINE LEUKOCYTES-REFLEX NEGATIVE (Negative); URINE NITRITE-REFLEX NEGATIVE (Negative); URINE PROTEIN (DIPSTICK) 2+ (Negative); URINE SPECIFIC GRAVITY 1.025 (1.005-1.035); URINE UROBILINOGEN 0.2 E.U./dl (0.2-1.0)
[2020-11-07 18:31] LABS: AMP/METHAMP Negative (Negative); BARBITURATES Negative (Negative); BENZODIAZEPINES POSITIVE (Negative); COCAINE POSITIVE (Negative); METHADONE Negative (Negative); OPIATES Negative (Negative); PCP Negative (Negative)
[2020-11-07 18:34] LABS: BACTERIA-REFLEX 1-9 Few /HPF (None Seen); CASTS None Seen /LPF (None Seen); CRYSTALS None Seen /LPF (None Seen); SQUAMOUS >10 Many /LPF (0-3); URINE RBC 0-2 Rare /HPF (0-2); URINE WBC-REFLEX 0-5 Rare /HPF (0-5)
[2020-11-07] MEDS ORDERED: ZPAK PO (19:19)
[2020-11-07 19:27] VITALS: BP 194/128
--- NOTE | 2020-11-09 07:44 | EKG ---
[address] [place] [address] ELECTROCARDIOGRAM REPORT Name: DANGELO STEVEN Room #: DEP LUIS ALBERTO Mane#: [id number] Admission: 11/07/20 Attend Phys: Discharge: 11/07/20 Date of : 65 Report #: [id number] [facility] ED Test Date: 2020-11-07 Test Time: 18:47:35 Pat Name: DANGELO STEVEN Department: Room: Gender: F Rate Supervisor: fareed : 1965 Requested By: Gaurav Crespo Order Number: [id number] MD: Gilson Reeder Measurements Intervals [place] Rate: 88 P: 37 MT: 156 QRS: 1 QRSD: 75 T: 100 QT: 371 QTc: 449 Interpretive Statements Sinus rhythm Left atrial enlargement LVH with secondary repolarization abnormality Poor R wave progression v1-3 Compared to ECG 11/24/2019 15:41:57 No significant change Electronically Signed On 11-09-2020 7:44:09 FACULTY HEAD by Gilson Reeder [email or web address] <ELECTRONICALLY SIGNED> By: Gilson Reeder MD, [facility] 11/09/20 0744 [id number] 46 Gilson Reeder MD, FACC /EPI
== END 2020-11-07 19:34 | disposition home or self-care (01) ==
LOC: ER 17:10
PROVIDERS: Nurse Practitioner
DX: M79.18 Myalgia, other site (principal); F19.10 Other psychoactive substance abuse, uncomplicated; R42 Dizziness and giddiness; M25.562 Pain in left knee; I25.2 Old myocardial infarction; I10 Essential (primary) hypertension; E78.5 Hyperlipidemia, unspecified; F41.9 Anxiety disorder, unspecified; F17.210 Nicotine dependence, cigarettes, uncomplicated; Z86.73 Personal history of transient ischemic attack (TIA), and cerebral infarction without residual deficits; Z90.49 Acquired absence of other specified parts of digestive tract; Z79.899 Other long term (current) drug therapy; Z79.82 Long term (current) use of aspirin; Z91.041 Radiographic dye allergy status; Z88.8 Allergy status to other drugs, medicaments and biological substances; Z88.0 Allergy status to penicillin; Z88.2 Allergy status to sulfonamides

== ENCOUNTER 2021-01-04 14:42 | Inpatient (IN) | payer OTHER ==
[~2021-01-04] VITALS: Ht 152.4 cm; Wt 84.4 kg
[~2021-01-04 14:42] MED LIST changes: +ZPAK PO
[2021-01-04 14:43] VITALS: BP 214/127
[2021-01-04 16:33] LABS: ABSOLUTE NEUTROPHILS 2.7 thou/uL (1.4-8.2); BASOPHILS 0.8 % (0.0-2.0); EOSINOPHILS 7.9 % (0.0-3.0); HEMATOCRIT 45.5 % (37.0-47.0); HEMOGLOBIN 14.9 gm/dL (12.0-15.0); LYMPHOCYTES 29.5 % (24.0-44.0); MCH 30.5 pg (26.0-34.0); MCHC 32.7 g/dL (28.0-37.0); MCV 93.3 fL (80.0-100.0); MONOCYTES 11.6 % (1.0-8.0); PLATELET COUNT 112 thou/uL (150-400); POLYS 50.2 % (36.0-66.0); RBC 4.88 mil/uL (4.20-5.00); RDW 15.2 % (10.5-14.5); WBC 5.3 thou/uL (4.0-11.0)
[2021-01-04 16:36] LABS: ANION GAP 7 mmol/L (7-16); BUN 43 mg/dL (7-18); CALCIUM 8.8 mg/dL (8.5-10.1); CHLORIDE 106 mmol/L (98-107); CO2 26 mmol/L (21-32); CREATININE 1.6 mg/dL (0.6-1.0); GLUCOSE 88 mg/dL (74-106); POTASSIUM 4.4 mmol/L (3.5-5.1); SODIUM 139 mmol/L (136-145)
[2021-01-04 16:41] LABS: APTT 25.8 Seconds (24.5-32.8); PROTIME 10.1 Seconds (9.3-11.4)
[2021-01-04 16:46] LABS: ALBUMIN 3.3 g/dL (3.4-5.0); LIPASE 159 U/L (73-393); SGOT 44 U/L (15-37); SGPT 47 U/L (14-59); TOTAL BILIRUBIN 0.4 mg/dL (0.2-1.0); TOTAL PROTEIN 7.5 g/dL (6.4-8.2); TROPONIN-I <0.06 ng/mL (<0.06)
[2021-01-04 17:20] VITALS: BP 230/119
[2021-01-04 18:52] LABS: URINE BILIRUBIN NEGATIVE (Negative); URINE BLOOD NEGATIVE (Negative); URINE CLARITY CLEAR; URINE COLOR YELLOW; URINE GLUCOSE-RANDOM* NEGATIVE (Negative); URINE KETONES NEGATIVE (Negative); URINE LEUKOCYTES-REFLEX TRACE (Negative); URINE NITRITE-REFLEX NEGATIVE (Negative); URINE PROTEIN (DIPSTICK) NEGATIVE (Negative); URINE SPECIFIC GRAVITY 1.015 (1.005-1.035); URINE UROBILINOGEN 0.2 E.U./dl (0.2-1.0)
[2021-01-04 19:08] LABS: INR < 0.9
--- NOTE | 2021-01-04 20:22 | NUR ---
PT STATING THAT THE DR HAS TO ORDER HER DIFFERENT PAIN MEDICATION. EXPLAINED TO PT THAT SHE HAS HAD ASPIRIN, TORDOL, AND MORPINE AND WAS OFFERED NORCO WHICH SHE DID NO WANT. PT STATING THAT SHE NEEDS TO TALK TO A DR WHO WILL ORDER HER SOMEHTING DIFFERENT. EXPLAINED TO PT THAT SHE IS NOW ADMITTED SO I WOULD HAVE TO CALL THE INPT PROVIDER WHO IS NOT IN THE ER. EXPLAINED TO PT THAT THEY MOST LIEKLY WILL NOT ORDER HER ANYTHING ELSE AT THIS POINT SINCE SHE HAS NORCO ORDERED. WILL NOTIFY INPT PROVIDER OF PT REQUEST.
[2021-01-04 21:19] VITALS: BP 158/90
[2021-01-04 23:33] VITALS: BP 128/78
[2021-01-04 23:54] VITALS: BP 128/71
[2021-01-05 00:09] VITALS: BP 156/99
--- NOTE | 2021-01-05 05:09 | NUR ---
Pt admitted to [facility] @ about midnight. Alert and oriented. VSS on RA. Pt is deaf. Reads lips. Paper and pen also utilized for communication. Pt is from [facility]. Home med reconciled. Ativan reordered and given per pt's request. Pt ambulating via STB assist so far this shift. Adm hx and assessment as documented. Pt sleeping well so far. LENIN IV SL. Edema to BLE. Per ED RN report, Pt can be drug seeking and manipulative. Pt also voiced having hx of cocaine, meth, marijuana usage. Voiced being clean for about 6-8 months now. Pt currently and everyday smoker. Call light within reach. Will continue to monitor.
[2021-01-05 05:23] LABS: HEMATOCRIT 44.7 % (37.0-47.0); HEMOGLOBIN 14.7 gm/dL (12.0-15.0); MCH 30.2 pg (26.0-34.0); MCHC 32.8 g/dL (28.0-37.0); MCV 92.2 fL (80.0-100.0); RBC 4.85 mil/uL (4.20-5.00); RDW 14.8 % (10.5-14.5); WBC 4.8 thou/uL (4.0-11.0)
[2021-01-05 05:26] LABS: CALCIUM 9.1 mg/dL (8.5-10.1); POTASSIUM 4.7 mmol/L (3.5-5.1)
[2021-01-05 05:53] VITALS: BP 175/99
--- NOTE | 2021-01-05 06:48 | EKG ---
[place] [address] [facility] [place] [address] ELECTROCARDIOGRAM REPORT Name: DANGELO STEVEN Room #: 449-I ADM IN M.R.#: [id number] Admission: 01/04/21 Attend Phys: Jj Diaz MD Discharge: Date of : 65 Report #: [id number] [facility] ED Test Date: 2021-01-04 Test Time: 16:18:56 Pat Name: DANGELO STEVEN Department: Room: [facility] Gender: F Automotive Dismantler: meme : 1965 Requested By: Ronan Merchant Order Number: [id number] : Gilson Reeder Measurements Intervals [place] Rate: 66 P: 33 MO: 169 QRS: -1 QRSD: 85 T: 121 QT: 443 QTc: 465 Interpretive Statements Sinus rhythm Left atrial enlargement LVH with secondary repolarization abnormality Minimal ST elevation, inferior leads Compared to ECG 11/07/2020 18:47:35 ST (T wave) deviation now present Poor R-wave progression no longer present Electronically Signed On 01-05-2021 6:48:20 FUNDRAISING ASSISTANT by Gilson Reeder [email or web address] <ELECTRONICALLY SIGNED> By: Gilson Reeder MD, [facility] 01/05/21 0648 1618 1618 Gilson Reeder MD, [facility] /EPI
[2021-01-05 09:09] VITALS: BP 192/107
--- NOTE | 2021-01-05 10:31 | 2DMMODE ---
[facility] [place] [address] 2 D/M-MODE ECHOCARDIOGRAM Name: DANGELO STEVEN Room #: 452-P ADM IN M.R.#: [id number] Admission: 01/04/21 Attend Phys: Jj Diaz MD Discharge: Date of : 65 Report #: [id number] THIS REPORT FOR: cc: JASMINA - No family physician/PCP JASMINA - No family physician/PCP Venkata Morin MD [facility] ~ APPROVED REPORT Study performed: 01/05/2021 09:02:12 EXAM: Comprehensive 2D, Doppler, and color-flow Echocardiogram Patient Location: Bedside Room #: 452 Status: routine BSA: 1.81 HR: 75 bpm BP: 192/107 mmHg Rhythm: NSR Other Information Study Quality: Good Indications Congestive Heart Failure Dyspnea CAD Chest Pain Hypertension/HDD 2D Dimensions RVDd: 36.15 mm IVSd: 14.84 (7-11mm) LVOT Diam: 17.75 (18-24mm) LVDd: 34.92 mm PWd: 15.38 (7-11mm) Ascending Ao: 35.32 (22-36mm) LVDs: 20.34 (25-40mm) Aortic Root: 29.19 mm IVC: 15.00 mm Volumes Left Atrial Volume (Systole) Single Plane 4CH: 119.82 mL Single Plane 2CH: 71.43 mL LA ESV Index: 57.00 mL/m2 Aortic Valve AoV Peak Dante.: 2.09 m/s [facility] [address] [address] 2 D/M-MODE ECHOCARDIOGRAM Name: DANGELO STEVEN Room #: 452-P ADM IN M.R.#: [id number] Admission: 01/04/21 Attend Phys: Jj Diaz MD Discharge: Date of : 65 Report #: [id number] AO Peak Gr.: 17.44 mmHg LVOT Max P.24 mmHg LVOT Max V: 1.75 m/s TR Vmax: 2.07 cm2 Mitral Valve E/A Ratio: 0.7 MV Decel. Time: 353.54 ms MV E Max Dante.: 0.87 m/s MV A Dante.: 1.22 m/s MV PHT: 102.53 ms IVRT: 253.75 ms Pulmonary Valve PV Peak Dante.: 1.11 m/s PV Peak Gr.: 4.94 mmHg Pulmonary Vein P Vein S: 0.52 m/s P Vein A: 0.21 m/s P Vein D: 0.38 m/s P Vein A Dur.: 120.0 msec P Vein S/D Ratio: 1.37 Tricuspid Valve TR Peak Dante.: 2.76 m/s TR Peak Gr.: 30.40 mmHg PA Pressure: 35.00 mmHg Left Ventricle The left ventricle is normal size. There is normal LV segmental wall motion. Mild to moderate concentric left ventricular hypertrophy. Left ventricular systolic function is hyperdynamic. Moderate intracavitary gradient (30mmHg), probably related to hyperdynamic LV function with LVH. LVEF is >70%. Mild diastolic dysfunction Right Ventricle The right ventricle is normal size. The right ventricular systolic function is normal. Atria Left atrium is dilated. Right atrium is dilated. Aortic Valve The aortic valve is mildly sclerotic, trileaflet. Mild aortic regurgitation. No aortic valvular stenosis. Mitral Valve Mild mitral annular calcification. Mild mitral regurgitation. No evidence of mitral valve stenosis. [facility] [address] [address] 2 D/M-MODE ECHOCARDIOGRAM Name: DANGELO STEVEN Room #: 452-P [facility] IN .R.#: [id number] Admission: 01/04/21 Attend Phys: Jj Diaz MD Discharge: Date of : 65 Report #: [id number] Tricuspid Valve The tricuspid valve is normal in structure. There is trace to mild tricuspid regurgitation. Estimated PAP 35 mmHg. Pulmonic Valve The pulmonary valve is normal in structure. There is no pulmonic valvular regurgitation. Great Vessels The aortic root is normal in size. IVC is normal in size and collapses >50% with inspiration. Pericardium There is no pericardial effusion. <Conclusion> Left ventricular systolic function is hyperdynamic. Concentric LVH. Moderate intracavitary gradient (30mmHg), probably related to hyperdynamic LV function with LVH. LVEF is >70%. Mild diastolic dysfunction The aortic valve is mildly sclerotic, trileaflet. Mild aortic regurgitation, no stenosis. Mild mitral annular calcification. Mild mitral regurgitation. There is trace to mild tricuspid regurgitation. Estimated pulmonary artery pressure of 35 mmHg. There is no pericardial effusion. <ELECTRONICALLY SIGNED> By: Venkata Morin MD, FACC 01/05/21 1031 1031 103 Venkata Morin MD, FACC /INF
--- NOTE | 2021-01-05 13:20 | NUR ---
ADV. DIR. CONSULT [id number] WAS NOT ABLE TO BE COMPLETED. PT. REFUSED. PATIENT WAS FOCUSED ON HER PAIN AND BEING ABLE TO FIND A PLACE TO LIVE. SHE SAID HER DRANK TOO MUCH AND SHE RECENTY BECOAME HOMELESS AFTER HAVING TWO WEEKS TO MOVE OUT.
--- NOTE | 2021-01-05 14:22 | NUR ---
PT ADMITTED RELATED TO CHF, ACCELERATED HTN. CM REVIEWED CHART AND SPOKE WITH CARE TEAM. CM MET WITH PT AT BEDSIDE THIS DAY PT IS DEAF AND CAN EITHER READ LIPS OR WRITTEN CORRESPONDENCE. PT INDICATED THAT SHE HAS A BED AT [facility] AND THAT SHE IS ABLE TO RETURN THERE ONCE MEDICALLY STABLE. PT INDICATED THAT SHE WOULD BE FINE TO HAVE HER MEDS FILLED HERE PRIOR TO DC AND THAT SHE CAN PAY FOR THEM. PT WILL LIKELY NEED CAB VOUCHER BACK TO [facility] AT [address] UPON DC. CM TO FOLLOW INDICATED WITH DC PLANNING.
[2021-01-05 15:59] VITALS: BP 166/94
--- NOTE | 2021-01-05 16:35 | NUR ---
Assumed pt care at 7am.Pt in out of bed independently.Assessment completed. Pt c/o back pain and requested for iv pain med.She said fentanyl preferably. Dr Diaz notified but declined the request.[place] offered but pt refused. Pt wanted to discus the issue with nurse manager documentation or Dr Cruz.Nurse manager documentation came and talked to pt.Dr Cruz notified ,he declined iv pain med.Pt stated that she will leave AMA if not given fentanyl.Dr Cruz called back and okay pt to leave if she wanted to.Will continue to monitor.
[2021-01-05 19:49] VITALS: BP 180/99
--- NOTE | 2021-01-06 04:17 | NUR ---
VSS-AFEBRILE. IRRITABLE AND RESTLESS DURING ASSESSMENT STATING HER BACK PAIN IS NOT BEING MANAGED. CONTINUED TO ASK FOR IV FENTANYL DESPITE DR SANCHEZ INFORMING HER THAT HE WILL BE MANAGING HER PAIN WITH PO PAIN MEDICATIONS DURING HER STAY. INQUIRED ON PROCESS OF LEAVING AMA, ALL INFORMATION WAS GIVEN, VERBALIZED UNDERSTANDING OF ALL INFORMATION. ADMINISTERED ALL PRESCRIBED PAIN MEDICATION, WAS THEN ABLE TO REST QUIETLY THROUGH THE SHIFT. ROUNDED HOURLY AND PATIENT WAS ASLEEP DURING EACH ROUND. FALL PRECAUTIONS IN PLACE.
[2021-01-06 06:08] VITALS: BP 151/95
[2021-01-06 07:20] VITALS: BP 176/102
[2021-01-06] MEDS ORDERED: HYDROCODON-ACE1 EAC7 PO (10:44)
[2021-01-06] MEDS ORDERED: ATIVAN2 MG PO (10:44)
[2021-01-06] MEDS ORDERED: LASIX 40 MG TAB40 MG PO (10:52)
[2021-01-06 11:58] VITALS: BP 176/102
--- NOTE | 2021-01-06 12:30 | NUR ---
CARE TEAM INDICATED THAT PT IS MEDICALLY STABLE TO DISHCARGE THIS DAY. CM CALLED [facility] AND THEY HAVE HELD HER BED. SHE IS ABLE TO RETURN THERE TODAY. CM TOOK PT'S PERSCRIPTIONS TO FILL DOWN AT OUR OUTPATIENT PHARMACY FOR HER TO TAKE WITH HER. CAB VOUCHER TO BE PROVIDED TO [facility].
--- NOTE | 2021-01-06 15:32 | NUR ---
Assumed pt care at 7am.Assessment completed.vss.Pt dangled at bs for all meals.Meds given as ordered and well tolerated.Dr Diaz here,order noted. Fentanyl ivp given for back pain with complete relief.court manager arranged for transport and rx sent to [facility] and picked up case manager specialist.Dc summary compile and reviewed with pt. At 1538,pt dc to [facility] via cab.
== END 2021-01-06 15:31 | disposition home or self-care (01) | DRG 293 ==
LOC: ER 14:42 → EROBS 17:27 → 4W 23:52
PROVIDERS: Emergency Medicine; ADMIT Hospitalist; ATTEND Hospitalist
DX: I11.0 Hypertensive heart disease with heart failure (principal); I50.33 Acute on chronic diastolic (congestive) heart failure; E78.5 Hyperlipidemia, unspecified; F41.9 Anxiety disorder, unspecified; M54.5 Low back pain; F17.210 Nicotine dependence, cigarettes, uncomplicated; I16.0 Hypertensive urgency; G89.29 Other chronic pain; F19.11 Other psychoactive substance abuse, in remission; Z86.73 Personal history of transient ischemic attack (TIA), and cerebral infarction without residual deficits; Z90.49 Acquired absence of other specified parts of digestive tract; I25.2 Old myocardial infarction; Z79.82 Long term (current) use of aspirin; Z79.899 Other long term (current) drug therapy; Z88.0 Allergy status to penicillin; Z88.2 Allergy status to sulfonamides; Z88.8 Allergy status to other drugs, medicaments and biological substances; Z91.041 Radiographic dye allergy status; Z23 Encounter for immunization
CPT/HCPCS: 10045